=== PATIENT | female | born 1970 | race American Indian/Alaskan Native ===

== ENCOUNTER 2016-12-05 09:41 | Emergency (ER) | payer OTHER ==
--- NOTE | 2016-12-05 09:57 | Emergency Department Report ---
Chief Complaint: Chest Pain Stated Complaint: BODY PAIN AND CHEST PAIN Time Seen by Provider: 12/05/16 09:53 - HPI History of Present Illness: PT c/o chest tightness. PT states she has been dealing with body pains and has a referral to a rhematologist - ROS Review of Systems: + anxiety about catching something (pt wearing mask in triage) + arthralgia + myalgia - Exam Physical Exam: PT is alert and appropriate gcs 15 no acute resp distress MSE screening note: Focused history and physical exam performed. Due to findings the following was ordered: ekg, xr, labs ED Disposition for MSE Condition: Stable
--- NOTE | 2016-12-05 10:53 | XRay Report ---
Chest 2 views: History: Chest tightness. Findings: Normal cardiomediastinal silhouette. Trachea is midline. No consolidation, pneumothorax or pleural effusion. Impression: No acute cardiopulmonary findings.
[2016-12-05 11:22] LABS: Basophils % (Auto) 0.9 % (0.0-1.8); Eosinophils % (Auto) 1.9 % (0.0-4.3); Hemoglobin 14.3 gm/dl (10.1-14.3); Mean Corpuscular HGB Conc 33 % (30-34); Mean Corpuscular Hemoglobin 27 pg (28-32); Mean Corpuscular Volume 81 fl (79-97); Platelet Count 247 K/mm3 (140-440); Red Cell Distribution Width 14.2 % (13.2-15.2); White Blood Count 4.9 K/mm3 (4.5-11.0)
[2016-12-05 11:28] LABS: Alanine Aminotransferase 12 units/L (7-56); Albumin 4.6 g/dL (3.9-5); Albumin/Globulin Ratio 1.4 %; Alkaline Phosphatase 42 units/L (35-129); Anion Gap 15 mmol/L; Blood Urea Nitrogen 9 mg/dL (7-17); Calcium 9.3 mg/dL (8.4-10.2); Carbon Dioxide 28 mmol/L (22-30); Glucose 92 mg/dL (65-100); Potassium 3.9 mmol/L (3.6-5.0); Sodium 141 mmol/L (137-145); Total Protein 7.8 g/dL (6.3-8.2)
[2016-12-05 11:34] LABS: INR 1.01 (0.87-1.13)
[2016-12-05 11:35] LABS: Partial Thromboplastin Time 33.2 Sec. (24.2-36.6)
[2016-12-05 14:43] LABS: Urine Drugs of Abuse Note Disclamer
[2016-12-05 15:07] LABS: Bilirubin,Urine NEG (Negative); Blood,Urine NEG (Negative); Ketones,Urine NEG (Negative); Leukocyte Esterase,Urine MOD (Negative); Mucus,Urine 2+ /HPF; Nitrite,Urine NEG (Negative); Protein,Urine <15 mg/dL mg/dL (Negative); Urobilinogen,Urine < 2.0 mg/dL (<2.0)
[2016-12-05] MEDS ORDERED: TORADOL IM ONE (17:22)
--- NOTE | 2016-12-05 17:32 | Emergency Department Report ---
ED General Adult HPI - General Chief complaint: Pain General Stated complaint: BODY PAIN AND CHEST PAIN Time Seen by Provider: 12/05/16 09:53 Source: patient Mode of arrival: Ambulatory Limitations: No Limitations - History of Present Illness Initial comments: 46-year-old female here with generalized pain. Patient states she is being worked up for MS versus lupus and has been off and on prednisone for the past couple months. She is getting worked up by her primary care doctor. Over the course of last several days she's developed worsening joint pain and chest pain. She has pain with deep inspiration. She's never had a blood clot in the past. She does complain of some mild shortness of breath. No fevers or chills no nausea no vomiting. She has not been on steroids recently. -: Gradual Location: chest, upper extremity, lower extremity Radiation: non-radiation Severity scale (0 -10): 0 Quality: aching Consistency: intermittent Associated Symptoms: chest pain - Related Data Previous Rx's Medication Instructions Recorded Last Taken Type Naproxen [Naprosyn] 500 mg PO BID #60 tablet 12/05/16 Unknown Rx Allergies Allergy/AdvReac Type Severity Reaction Status Date / Time oxycodone HCl Allergy Shortness Verified 12/05/16 10:24 [From OxyContin] of Breath ED Review of Systems ROS: Stated complaint: BODY PAIN AND CHEST PAIN Other details as noted in HPI Comment: All other systems reviewed and negative Constitutional: denies: chills, fever Eyes: denies: eye pain, eye discharge, vision change ENT: denies: ear pain, throat pain Respiratory: denies: cough, shortness of breath, wheezing Cardiovascular: chest pain. denies: palpitations Endocrine: no symptoms reported Gastrointestinal: denies: abdominal pain, nausea, diarrhea Genitourinary: denies: urgency, dysuria, discharge Musculoskeletal: denies: back pain, joint swelling, arthralgia Skin: denies: rash, lesions Neurological: denies: headache, weakness, paresthesias Psychiatric: denies: anxiety, depression Hematological/Lymphatic: denies: easy bleeding, easy bruising ED Past Medical Hx - Past Medical History Previous Medical History?: Yes Hx Hypertension: Yes Hx of Cancer: Yes Hx Asthma: Yes - Surgical History Past Surgical History?: Yes Additional Surgical History: Hysterectomy, Left breast cancer, Stretching of the esophagus - Family History Family history: diabetes, hypertension - Social History Smoking Status: Current Every Day Smoker Substance Use Type: Alcohol - Medications Home Medications: Home Medications Medication Instructions Recorded Confirmed Last Taken Type Naproxen [Naprosyn] 500 mg PO BID #60 tablet 12/05/16 Unknown Rx ED Physical Exam - General Limitations: No Limitations General appearance: alert, in no apparent distress - Head Head exam: Present: atraumatic, normocephalic - Eye Eye exam: Present: normal appearance. Absent: scleral icterus, conjunctival injection - ENT ENT exam: Present: mucous membranes moist - Neck Neck exam: Present: normal inspection. Absent: lymphadenopathy - Respiratory Respiratory exam: Present: normal lung sounds bilaterally. Absent: respiratory distress, wheezes, rales - Cardiovascular Cardiovascular Exam: Present: regular rate, normal rhythm, normal heart sounds. Absent: systolic murmur, diastolic murmur, rubs, gallop - GI/Abdominal GI/Abdominal exam: Present: soft, normal bowel sounds - Extremities Exam Extremities exam: Present: normal inspection - Back Exam Back exam: Present: normal inspection - Neurological Exam Neurological exam: Present: alert, oriented X3 - Psychiatric Psychiatric exam: Present: normal affect, normal mood - Skin Skin exam: Present: warm, dry, intact, normal color. Absent: rash ED Course Vital Signs 12/05/16 12/05/16 12/05/16 10:14 14:28 18:23 Temperature 98.4 F 98.1 F Pulse Rate 82 70 71 Respiratory 20 18 18 Rate Blood Pressure 158/105 Blood Pressure 159/103 147/100 [Right] O2 Sat by Pulse 100 100 100 Oximetry 12/05/16 12/05/16 19:50 20:40 Temperature 98 F Pulse Rate 102 H Respiratory 18 Rate Blood Pressure Blood Pressure 135/86 [Right] O2 Sat by Pulse 100 100 Oximetry ED Medical Decision Making - Lab Data Result diagrams: 12/05/16 10:48 12/05/16 10:48 Laboratory Results - last 24 hr 12/05/16 12/05/16 12/05/16 10:48 10:48 10:48 WBC 4.9 RBC 5.40 H Hgb 14.3 Hct 44.0 H MCV 81 MCH 27 L MCHC 33 RDW 14.2 Plt Count 247 Lymph % (Auto) 28.6 Sullivan % (Auto) 8.4 H Eos % (Auto) 1.9 Baso % (Auto) 0.9 Lymph # 1.4 Sullivan # 0.4 Eos # 0.1 Baso # 0.0 Seg Neutrophils % 60.2 Seg Neutrophils # 2.9 PT 13.2 INR 1.01 APTT 33.2 Sodium Potassium Chloride Carbon Dioxide Anion Gap BUN Creatinine Estimated GFR BUN/Creatinine Ratio Glucose Calcium Total Bilirubin AST ALT Alkaline Phosphatase Troponin T Total Protein Albumin Albumin/Globulin Ratio HCG, Qual Negative Urine Color Urine Turbidity Urine pH Ur Specific Addison Urine Protein Urine Glucose (UA) Urine Ketones Urine Blood Urine Nitrite Urine Bilirubin Urine Urobilinogen Ur Leukocyte Esterase Urine WBC (Auto) Urine RBC (Auto) U Epithel Cells (Auto) Urine Mucus Urine Opiates Screen Urine Methadone Screen Ur Barbiturates Screen Ur Phencyclidine Scrn Ur Amphetamines Screen U Benzodiazepines Scrn Urine Cocaine Screen U Marijuana (THC) Screen Drugs of Abuse Note 12/05/16 12/05/16 12/05/16 10:48 14:35 14:35 WBC RBC Hgb Hct MCV MCH MCHC RDW Plt Count Lymph % (Auto) Sullivan % (Auto) Eos % (Auto) Baso % (Auto) Lymph # Sullivan # Eos # Baso # Seg Neutrophils % Seg Neutrophils # PT INR APTT Sodium 141 Potassium 3.9 Chloride 102.0 Carbon Dioxide 28 Anion Gap 15 BUN 9 Creatinine 0.5 L Estimated GFR > 60 BUN/Creatinine Ratio 18.00 Glucose 92 Calcium 9.3 Total Bilirubin 0.50 AST 13 ALT 12 Alkaline Phosphatase 42 Troponin T < 0.010 Total Protein 7.8 Albumin 4.6 Albumin/Globulin Ratio 1.4 HCG, Qual Urine Color Yellow Urine Turbidity Clear Urine pH 6.0 Ur Specific Addison 1.020 Urine Protein <15 mg/dl Urine Glucose (UA) Neg Urine Ketones Neg Urine Blood Neg Urine Nitrite Neg Urine Bilirubin Neg Urine Urobilinogen < 2.0 Ur Leukocyte Esterase Mod Urine WBC (Auto) 6.0 Urine RBC (Auto) 7.0 U Epithel Cells (Auto) 4.0 Urine Mucus 2+ Urine Opiates Screen Presumptive negative Urine Methadone Screen Presumptive negative Ur Barbiturates Screen Presumptive negative Ur Phencyclidine Scrn Presumptive negative Ur Amphetamines Screen Presumptive negative U Benzodiazepines Scrn Presumptive negative Urine Cocaine Screen Presumptive negative U Marijuana (THC) Screen Presumptive negative Drugs of Abuse Note Disclamer 12/05/16 15:56 WBC RBC Hgb Hct MCV MCH MCHC RDW Plt Count Lymph % (Auto) Sullivan % (Auto) Eos % (Auto) Baso % (Auto) Lymph # Sullivan # Eos # Baso # Seg Neutrophils % Seg Neutrophils # PT INR APTT Sodium Potassium Chloride Carbon Dioxide Anion Gap BUN Creatinine Estimated GFR BUN/Creatinine Ratio Glucose Calcium Total Bilirubin AST ALT Alkaline Phosphatase Troponin T < 0.010 Total Protein Albumin Albumin/Globulin Ratio HCG, Qual Urine Color Urine Turbidity Urine pH Ur Specific Addison Urine Protein Urine Glucose (UA) Urine Ketones Urine Blood Urine Nitrite Urine Bilirubin Urine Urobilinogen Ur Leukocyte Esterase Urine WBC (Auto) Urine RBC (Auto) U Epithel Cells (Auto) Urine Mucus Urine Opiates Screen Urine Methadone Screen Ur Barbiturates Screen Ur Phencyclidine Scrn Ur Amphetamines Screen U Benzodiazepines Scrn Urine Cocaine Screen U Marijuana (THC) Screen Drugs of Abuse Note - EKG Data -: EKG Interpreted by Me - EKG Data 12/05/16 17:30 Normal sinus rhythm rate of 75 normal axis normal intervals and no ST-T wave changes. - Radiology Data Radiology results: report reviewed, image reviewed - Medical Decision Making 46-year-old female here with complaints of chest pain, pleuritic in nature. Patient has diffuse arthralgias well. Labs are unremarkable and chest x-ray is clear. Given her description of the pain and the possibility of a rheumatological disorder I will check a d-dimer to make sure she does not have a PE. She still low risk for PE. If negative plan to discharge her home on NSAIDs. [place] plan start steroids given that she is still in process of being worked up for rheumatological disorder. D-dimer is negative. 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 Portions of this chart were dictated with dictation software. There may be dictation errors contained within this note. Critical care attestation.: If time is entered above; I have spent that time in minutes in the direct care of this critically ill patient, excluding procedure time. ED Disposition Clinical Impression: Arthralgia, Chest pain Disposition: [id number] TO HOME OR SELFCARE Is pt being admited?: No Condition: Stable Instructions: Chest Pain (ED), Arthralgia (ED) Additional Instructions: Please follow-up with your primary care doctor and generator operator this week. Prescriptions: Naproxen [Naprosyn] 500 mg PO BID #60 tablet Referrals: PRIMARY CARE, [Primary Care Provider] - 3-5 Days
[2016-12-05 20:40] VITALS: BP 135/86
== END 2016-12-05 21:44 | disposition home or self-care (01) ==
LOC: ED 09:41
DX: R07.9 Chest pain, unspecified (principal); R06.02 Shortness of breath; I10 Essential (primary) hypertension; J45.909 Unspecified asthma, uncomplicated; F17.210 Nicotine dependence, cigarettes, uncomplicated; Z88.8 Allergy status to other drugs, medicaments and biological substances
CPT/HCPCS: 36415; 71020; 80053; 80307; 81001; 84484; 84703; 85025; 85379; 85610; 85730; 93005; 93010; 96372; 99284; J1885